=== PATIENT | female | born 1950 | race Caucasian/White ===

== ENCOUNTER 2025-05-14 16:07 | Observation (INO) | payer MEDICARE, SELFPAY ==
[2025-05-14 16:08] VITALS: BP 144/59; PULSE 99; RESP 20; TEMP 36.5; O2SAT 100
[2025-05-14 16:27] LABS: Hematocrit 36.5 % (35.0-42.0); Hemoglobin 11.9 g/dL (11.7-13.8); Immature Granulocyte Percent A 0.2 % (0.0-0.0); Lymphocytes Absolute Auto 1.36 K/mm3 (1.10-4.50); Mean Corpuscular HGB Conc 32.6 g/dL (32-36); Mean Corpuscular Hemoglobin 30.5 pg (27.0-31.0); Mean Corpuscular Volume 93.6 fL (78.0-102.0); Nucleated Red Blood Cells Absolute Auto 0.00 K/mm3 (0.00-0.00); Nucleated Red Blood Cells Perc 0.0 % (0-0.0); Platelet Count Result 204 K/mm3 (150-420); Red Blood Count 3.90 M/mm3 (4.20-5.40); White Blood Count 6.3 K/mm3 (4.8-10.8)
[2025-05-14 16:39] LABS: Alanine Aminotransferase 24 U/L (6-35); Albumin Level 4.4 g/dL (3.5-5.1); Alkaline Phosphatase 75 U/L (38-126); Anion Gap 8 mmol/L (4-12); Aspartate Amino Transferase 29 U/L (14-36); Blood Urea Nitrogen 22 mg/dL (7-17); Calcium 9.3 mg/dL (8.4-10.2); Carbon Dioxide 29 mmol/L (22-30); Chloride 106 mmol/L (98-107); Estimated CRCL calculation 43 ml/min; Estimated Glomerular Filt Rate > 60; Glucose 115 mg/dL (65-110); Osmolality Calculated 300 mOsm/kg (285-295); Potassium 3.8 mmol/L (3.4-5.0); Sodium 143 mmol/L (137-145); Total Protein 6.9 g/dL (6.3-8.2)
--- NOTE | 2025-05-14 17:18 | ED_ITS ---
HPI - Weakness General Chief complaint: Weakness Stated complaint: weakness Time Seen by Provider: 05/14/25 16:09 Source: patient and family Mode of arrival: wheelchair Limitations: no limitations History of Present Illness HPI Narrative: 75-year-old with a history of MS was brought in by family with a complains of progressive decline in her ambulation. Patient states that she usually walks with a walker and for the past few days she is unable to use it because of lower extremity weakness. She denies any headache, chest pain or shortness of breath. Family is requesting to admit her to the hospital for shelter placement. MD Complaint: generalized weakness Onset (ago): day(s) (4) Location: generalized Migration: none Severity: moderate Associated symptoms: denies other symptoms Related Data Home Medications ?Medication ?Instructions ?Recorded ?Confirmed ?Last Taken ?Type calcium 600 mg (as 2 tablet PO DAILY 05/14/25 Unknown History carbonate)-vitamin D3 5 mcg (200 unit) tablet cholecalciferol (vitamin D3) 125 250 mcg PO DAILY 04/28 01/19 Unknown History mcg (5,000 unit) tablet (Vitamin D3) Allergies Allergy/AdvReac Type Severity Reaction Status Date / Time No Known Allergies Allergy Verified 05/14/25 16:46 Review of Systems 2 Review of Systems: All systems reviewed & are unremarkable except as noted in HPI and below Constitutional: Constitutional: Reports no additional constitutional complaints Eyes: Eyes: Reports no additional eye complaints ENT: Reports system reviewed and no additional complaints, except as documented Cardiovascular: Cardiovascular: Reports no additional cardiovascular complaints Respiratory: Respiratory: Reports no additional respiratory complaints Gastrointestinal: Gastrointestinal: Reports no additional gastrointestinal complaints Genitourinary: Genitourinary: Reports no additional female genitourinary complaints Musculoskeletal: Musculoskeletal: Reports as per HPI Integumentary/Breasts: Skin/Breast: Reports system reviewed and no additional complaints, except as docu Neurologic: Reports system reviewed and no additional complaints, except as documented Exam 2 Narrative: GENERAL: Well-appearing, well-nourished, and in no acute distress. HEAD: Normocephalic, atraumatic. EYES: PERRLA and EOMI. ENT: Nares clear, no rhinorrhea or epistaxis. Mucous membranes moist. NECK: Supple. CHEST: Clear to auscultation. No respiratory distress. HEART: Regular rate and rhythm. No murmur heard. Normal peripheral pulses. ABDOMEN: Soft, nontender, nondistended, normal active bowel sounds. EXTREMITIES: Normal range of motion. No edema. SKIN: Warm, dry, no rash. NEURO: No focal deficits. Alert and oriented x3. PSYCH: Normal mood and affect. Course Course Emergency Course: Discussed with the hospitalist agreed for admission. Reviewed lab work with the patient. Vital Signs Vital signs: Vital Signs Temperature 36.5 C 05/14/25 16:08 Pulse Rate 99 05/14/25 16:08 Respiratory Rate 20 05/14/25 16:08 Blood Pressure 144/59 H 05/14/25 16:08 Pulse Oximetry 100 05/14/25 16:08 Oxygen Delivery Room Air 05/14/25 16:08 Temperature 36.5 C 05/14/25 16:08 Pulse Rate 99 05/14/25 16:08 Respiratory Rate 20 05/14/25 16:08 Blood Pressure 144/59 H 05/14/25 16:08 Pulse Oximetry 100 05/14/25 16:08 Oxygen Delivery Room Air 05/14/25 16:08 MDM - Weakness Lab Data 05/14/25 16:23 05/14/25 16:23 Labs: Lab Results 05/14/25 Range/Units 16:23 WBC 6.3 (4.8-10.8) K/mm3 RBC 3.90 L (4.20-5.40) M/mm3 Hgb 11.9 (11.7-13.8) g/dL Hct 36.5 (35.0-42.0) % MCV 93.6 (78.0-102.0) fL MCH 30.5 (27.0-31.0) pg MCHC 32.6 (32-36) g/dL RDW 13.4 (11.6-14.4) % Plt Count 204 (150-420) K/mm3 MPV 10.9 (9.2-11.8) fl Immature Gran % (Auto) 0.2 H (0.0-0.0) % Neut % (Auto) 69.0 (50.0-70.0) % Lymph % (Auto) 21.7 (18.0-42.0) % [place] % (Auto) 7.3 (2.0-11.0) % Eos % (Auto) 1.3 (1.0-6.0) % Baso % (Auto) 0.5 (0.0-1.0) % Lymph # (Auto) 1.36 (1.10-4.50) K/mm3 [place] # (Auto) 0.46 (0.10-0.90) K/mm3 Eos # (Auto) 0.08 (0.02-0.50) K/mm3 Baso # (Auto) 0.03 (0.00-0.10) K/mm3 Abs Immat Gran (auto) 0.01 H (0.00-0.00) K/mm3 Absolute Neuts (auto) 4.34 (1.70-7.20) K/mm3 Absolute Nucleated RBC 0.00 (0.00-0.00) K/mm3 Nucleated RBC % 0.0 (0-0.0) % Sodium 143 (137-145) mmol/L Potassium 3.8 (3.4-5.0) mmol/L Chloride 106 (98-107) mmol/L Carbon Dioxide 29 (22-30) mmol/L Anion Gap 8 (4-12) mmol/L BUN 22 H (7-17) mg/dL Creatinine 0.85 (0.7-1.0) mg/dL Estim Creat Clear Calc 43 ml/min Estimated GFR > 60 (59 - ) Glucose 115 H (65-110) mg/dL Calculated Osmolality 300 H (285-295) mOsm/kg Calcium 9.3 (8.4-10.2) mg/dL Total Bilirubin Pending AST 29 (14-36) U/L ALT 24 (6-35) U/L Alkaline Phosphatase 75 (38-126) U/L Total Protein 6.9 (6.3-8.2) g/dL Albumin 4.4 (3.5-5.1) g/dL Discharge Plan Discharge Clinical Impression: Weakness Patient Disposition: Still a Patient Condition: Stable Time of Disposition: 17:21
[2025-05-14 17:20] VITALS: BMI 19.5
--- NOTE | 2025-05-14 17:29 | ADMGEN ---
This patient, Yoanna Huynh, was admitted to 2nd Floor Room 202-1. Patient/family oriented to hospital policies and general routines including ID bracelet, bed and alarms, visiting hours, pain management, procedures, bathroom and other care routines, personal items, smoking policy, room service/diet, and visiting hours. Information on how to activate the Rapid Response Team has been discussed. Patient/Family are encouraged to report perceived risks to care and to ask questions if they do not understand what they are told or what they should do.
[2025-05-14 17:30] VITALS: PULSE 90; RESP 17; O2SAT 99
[2025-05-14 17:40] LABS: Bilirubin,Total < 0.1 mg/dL (0.2-1.3)
[2025-05-14 18:00] VITALS: BP 141/60; PULSE 90; RESP 17; TEMP 36.5; O2SAT 99
--- NOTE | 2025-05-14 18:30 | PC.NURSE ---
Patient underwent surgical excision of skin lesion to LLE on 05/08/25, 7 sutures are to be removed 05/15/25.
[2025-05-14 18:36] LABS: Add Urine Microscopic? YES; Appearance Urine Clear (Clear); Glucose Urine UA Negative (Negative); Leukocyte Esterase Ur Trace (Negative); Nitrate Urine Negative (Negative); Specific Grav Ur 1.020 (1.010-1.020)
[2025-05-14 20:00] VITALS: PULSE 90; RESP 17; O2SAT 99
[2025-05-14] MEDS: ACETAMINOPHEN 325 MG TABLET 650 MG PO (21:16)
[2025-05-15] VITALS: BP 124/57; PULSE 86; RESP 16; TEMP 36.9; O2SAT 97
[2025-05-15 08:00] VITALS: BP 132/62; PULSE 78; RESP 16; TEMP 36.2; O2SAT 99
[2025-05-15] MEDS: CHOLECALCIFEROL (VITAMIN D3) 125 MCG (5,000 UNITS) TABLET 250 MCG PO (09:01)
--- NOTE | 2025-05-15 11:37 | PM.IMHP ---
H&P: HPI History of Present Illness Date/Time: 05/15/25 11:37 [facility] Social History Social History Smoking status: Never smoker Second hand tobacco smoke exposure: Yes Alcohol intake: never Substance use: never Substance use type: does not use Lack of Transportation: No Lack of Food: Never True Current Housing: I Have Housing Concerned About Future Housing: No Difficulty Paying Gas/Electric Bills: No Difficulty Paying for Meds: No Currently Unemployed: No Education: High School Diploma/GED Difficulty w/ Childcare or Family Care: No Spiritual care concerns: No Meds Home Medications and Allergies Home Medications ?Medication ?Instructions ?Recorded ?Confirmed ?Type calcium 600 mg (as 2 tablet PO DAILY 05/14/25 05/14/25 History carbonate)-vitamin D3 5 mcg (200 unit) tablet cholecalciferol (vitamin D3) 125 250 mcg PO DAILY 05/14/25 05/14/25 History mcg (5,000 unit) tablet (Vitamin D3) Allergies Allergy/AdvReac Type Severity Reaction Status Date / Time No Known Allergies Allergy Verified 05/14/25 17:29 Vital Signs Vital Signs - 24 hr 05/14/25 16:08 05/14/25 17:30 05/14/25 18:00 Temperature 97.7 F 97.7 F Pulse Rate 99 90 90 Respiratory Rate 20 17 17 Blood Pressure 144/59 H 141/60 H Pulse Oximetry 100 99 99 Oxygen Delivery Room Air Room Air Room Air 05/14/25 20:00 05/15/25 00:00 05/15/25 08:00 Temperature 98.5 F Pulse Rate 90 86 78 Respiratory Rate 17 16 16 Blood Pressure 124/57 L Pulse Oximetry 99 97 99 Oxygen Delivery Room Air Room Air Room Air 05/15/25 08:00 Temperature 97.2 F L Pulse Rate 78 Respiratory Rate 16 Blood Pressure 132/62 Pulse Oximetry 99 Oxygen Delivery Room Air H&P: Results Labs Labs: Short CBC 05/14/25 Range/Units 16:23 WBC 6.3 (4.8-10.8) K/mm3 Hgb 11.9 (11.7-13.8) g/dL Hct 36.5 (35.0-42.0) % Plt Count 204 (150-420) K/mm3 [facility] 05/14/25 16:23 Sodium 143 Potassium 3.8 Chloride 106 Carbon Dioxide 29 BUN 22 H Creatinine 0.85 Glucose 115 H Calcium 9.3 Liver Function 05/14/25 Range/Units 16:23 Total Bilirubin < 0.1 L (0.2-1.3) mg/dL AST 29 (14-36) U/L ALT 24 (6-35) U/L Alkaline Phosphatase 75 (38-126) U/L Albumin 4.4 (3.5-5.1) g/dL Urine 05/14/25 Range/Units 18:26 Urine Color Light yellow (Yellow) Urine Appearance Clear (Clear) Urine pH 6.5 (5.0-8.0) Ur Specific [place] 1.020 (1.010-1.020) Urine Protein Negative (Negative) Urine Glucose (UA) Negative (Negative)
[2025-05-15 16:00] VITALS: BP 125/55; PULSE 88; RESP 16; TEMP 36.6; O2SAT 100
--- NOTE | 2025-05-15 17:20 | PC.NURSE ---
Discharge instructions went over with patient and son in [place]. Both state understanding. Teaching given to [place] on use of denise, states understanding.
--- NOTE | 2025-05-15 17:30 | PC.NURSE ---
Patient transported out of facility via w/c, and into personal vehicle via gait belt and extensive 1 assist. Left in stable condition.
--- NOTE | 2025-05-15 21:49 | PM.SD2 ---
Same Day Admit/Disch: [facility] History of Present Illness Chief complaint: weakness Narrative: Yoanna Huynh is a 75 year old female with past medical history of multiple sclerosis and vitamin d deficiency. Patient was brought to the ER by family with reported 4-5 days of generalized weakness. The daughter reports the patient can normally ambulate in the house with a walker and that for the last 4-5 days she has been unable to ambulate. Patient is normally cared for at home by her , however her is in a different hospital currently. Patient has a history of MS, but does not see a neurologist for it and has never been on any treatment in the past. Patient's lab work in the ER was essentially unremarkable. UA negative for infection. Patient's family reported they can not care for her at home and wanted her admitted for rehab placement. Patient was admitted for observation. [facility] Social History Social History Smoking status: Never smoker Second hand tobacco smoke exposure: Yes Alcohol intake: never Substance use: never Substance use type: does not use Lack of Transportation: No Lack of Food: Never True Current Housing: I Have Housing Concerned About Future Housing: No Difficulty Paying Gas/Electric Bills: No Difficulty Paying for Meds: No Currently Unemployed: No Education: High School Diploma/GED Difficulty w/ Childcare or Family Care: No Spiritual care concerns: No Same Day Admit/Disch: Med Pre-admit Medications Home Medications ?Medication ?Instructions ?Recorded ?Confirmed ?Type calcium 600 mg (as 2 tablet PO DAILY 05/14/25 05/14/25 History carbonate)-vitamin D3 5 mcg (200 unit) tablet cholecalciferol (vitamin D3) 125 250 mcg PO DAILY 05/14/25 05/14/25 History mcg (5,000 unit) tablet (Vitamin D3) Review of Systems Review of Systems All systems reviewed & are unremarkable except as noted in HPI and below Exam Const: General: comfortable and no acute distress HENMT: Face/Nose/Sinus: Normal nares present Mouth: Yes moist mucous membranes Eyes: General: appearance normal, both eyes and all related structures Sclera: sclerae normal Neck: Neck: supple Resp: Effort & Inspection: normal respiratory effort Auscultation: clear to auscultation bilaterally Cardio: Rate: regular rate Rhythm: regular rhythm GI: GI Palp: Yes Soft to palpation Auscultation: normal bowel sounds Skin: General skin exam: normal color and no rashes or lesions noted Neuro: Speech: normal speech Motor exam (neuro): 5/5 motor strength present throughout Sensory Exam: normal sensation Extrem: General: normal to inspection Psych: Mental Status: mental status grossly normal Affect: normal affect DS: Summary Hospital Course Reason for hospitalization: generalized weakness Hospital Course: generalized weakness -family reports 4-5 day decline in patients ability to ambulate with her walker -lab work essentially unremarkable, UA negative for infection -vital signs stable -PT/OT eval, recommending rehab, however patient does not qualify and will have to discharge to a custodial or home with HHC -patient prefers to discharge home with [facility], does not want to go to a custodial -home health care respiratory therapist was consulted -discharge home today multiple sclerosis -patient has a history of multiple sclerosis per daughter, but does not see a neurologist and has never been on any medication for it -patient instructed to follow up with her PCP as an outpatient and ask for a referral to a neurologist Time Spent with Patient Time attestation: Total time spent providing and/or coordinating discharge services: 25 Minutes DS: Admitting Diagnosis Discharge Date 05/15/25 Admitting Diagnosis generalized weakness multiple sclerosis DS: Discharge Diagnosis Discharge Diagnosis (1) Weakness: Code(s): R53.1 - Weakness Status: Acute (2) Multiple sclerosis: Code(s): G35.D - Multiple sclerosis, unspecified Status: Acute Discharge Plan Discharge Attending physician on discharge: Mirza Bond Consulting providers: Liat Tay Discharging Clinician: Liat Tay Patient Disposition: Home with Home Health Service Activity: as tolerated Diet: as tolerated Discharge Instructions: Please follow up with your PCP in the next few days to have the sutures in your tyler removed if you do not make your scheduled appointment today. Patient Instructions: Antibiotic Form, Fall Prevention for Older Adults (DC), Weakness (DC) Patient Language: Ethiopian Stand Alone Forms: General Discharge Information Follow-up/Referrals: Roseline,Keily Curran MD [Primary Care Provider, Unknown] Referral Note: Call for an appointment to be seen within 1-2 weeks of discharge. Discharge Medications: Continued calcium carbonate-vitamin D3 600 mg-5 mcg (200 unit) tablet 2 tablet PO DAILY cholecalciferol (vitamin D3) [Vitamin D3] 125 mcg (5,000 unit) tablet 250 mcg PO DAILY Date of admission: 05/14/25 16:53 Primary Care Provider: Roseline,Keily Curran Admitting Provider: Mirza Bond Attending physician on admission: Mirza Bond Condition: Stable Quality VTE Prophylaxis VTE prophylaxis: mechanical ordered
--- NOTE | 2025-05-17 12:50 | PC.NURSE ---
Discharge call back completed, no questions regarding discharge instructions
== END 2025-05-15 17:30 | disposition home health service (06) ==
LOC: CHSED 16:57 → CHS2ND 17:03
PROVIDERS: Admitting Provider Internal Medicine; Emergency Provider Family Medicine; PCP Family Medicine; Visit Provider Internal Medicine
DX: R53.1 Weakness (principal); G35.D Multiple sclerosis, unspecified; R26.2 Difficulty in walking, not elsewhere classified; E55.9 Vitamin D deficiency, unspecified
CPT/HCPCS: 36415; 80053; 81001; 85025; 97162; 97165; 99285; A9270; G0378